=== PATIENT | female | born 1940 | race Caucasian/White ===

== ENCOUNTER → 2020-08-09 | Outpatient (CLI) | payer MEDICARE, OTHER ==
[~2020-08-09] MED LIST: IBUPROFEN 200200 M1 PO; TRAMADOL 50 MG50 MG PO
== END ==
LOC: M.MRI 13:30
PROVIDERS: ATTEND Family Medicine
DX: M47.816 Spondylosis without myelopathy or radiculopathy, lumbar region (principal); M48.061 Spinal stenosis, lumbar region without neurogenic claudication; M41.9 Scoliosis, unspecified; M25.552 Pain in left hip; M25.562 Pain in left knee; I10 Essential (primary) hypertension